=== PATIENT | female | born 1980 | race Caucasian/White ===

== ENCOUNTER 2022-05-23 09:31 | Emergency (ER) | payer OTHER ==
[~2022-05-23] VITALS: Ht 167.6 cm; Wt 75.3 kg
[2022-05-23] MEDS ORDERED: PROAIR RESPICL90 MCG IH (09:42)
== END 2022-05-23 14:28 | disposition home or self-care (01) ==
LOC: ER 09:31
DX: J45.909 Unspecified asthma, uncomplicated (principal); Z20.822 Contact with and (suspected) exposure to COVID-19